=== PATIENT | male | born 1950 | race Caucasian/White ===

== ENCOUNTER 2023-11-16 08:41 | Emergency (ER) | payer OTHER ==
[~2023-11-16] VITALS: Ht 177.8 cm; Wt 75.0 kg
[2023-11-16 08:48] VITALS: BP 140/56; PULSE 84; RESP 16; TEMP 98
[2023-11-16 09:17] LABS: BASOPHILS % (AUTO) 0.5 % (0-1); EOSINOPHILS # (AUTO) 0.1 X10'3 (0-0.9); EOSINOPHILS % (AUTO) 1.4 % (0-6); HEMATOCRIT 44.5 % (42.0-52.0); HEMOGLOBIN 15.1 g/dl (14.0-17.9); LYMPHOCYTES # (AUTO) 2.1 X10'3 (1.1-4.8); LYMPHOCYTES % (AUTO) 38.1 % (21-51); MEAN CORPUSCULAR HGB CONC 33.9 g/dL (33.0-36.5); MEAN CORPUSCULAR VOLUME 91.5 FL (78-98); MEAN PLATELET VOLUME 8.4 FL (7.4-10.4); MONOCYTES # (AUTO) 0.5 X10'3 (0-0.9); MONOCYTES % (AUTO) 9.2 % (2-12); NEUTROPHILS # (AUTO) 2.8 X10'3 (1.8-7.7); NEUTROPHILS % (AUTO) 50.8 % (42-75); PLATELET COUNT 200 X10'3 (140-440); RED BLOOD COUNT 4.87 X10'6 (4.70-6.10); RED CELL DISTRIBUTION WIDTH 14.2 % (11.5-14.5); WHITE BLOOD COUNT 5.5 X10'3 (4.5-11.0)
[2023-11-16 09:35] LABS: APTT 27 SECONDS (22-32); D-DIMER 0.42 MG/L FEU (0-0.50); PROTHROMBIN TIME 10.7 SECONDS (9.0-12.0)
[2023-11-16 09:50] LABS: ALBUMIN 3.8 G/DL (3.4-5.0); ANION GAP 6 (8-16); BLOOD UREA NITROGEN 15 MG/DL (7-18); BUN/CREATININE RATIO 13.6 (10.0-20.0); CALCIUM 9.2 MG/DL (8.5-10.1); CHLORIDE 104 MMOL/L (99-107); GLUCOSE 96 MG/DL (70-104); POTASSIUM 4.4 MMOL/L (3.5-5.1); PRO BRAIN NATRIURETIC PEPTIDE 141 PG/ML (0-125); SODIUM 137 MMOL/L (135-145); TOTAL CARBON DIOXIDE 26.7 MMOL/L (24-32); eCRCL 64 ML/MIN; eGFR 66 ML/MIN
[2023-11-16 14:47] VITALS: O2SAT 97
== END 2023-11-16 16:16 | disposition home or self-care (01) ==
LOC: ER 08:42
DX: D17.24 Benign lipomatous neoplasm of skin and subcutaneous tissue of left leg (principal); Z86.711 Personal history of pulmonary embolism; Z88.0 Allergy status to penicillin; R94.31 Abnormal electrocardiogram [ECG] [EKG]
CPT/HCPCS: 36415; 80048; 83880; 84484; 85025; 85379; 85610; 85730; 93005; 93971; 99284